=== PATIENT | female | born 1955 | race Caucasian/White ===

== ENCOUNTER 2016-08-28 09:48 | Outpatient (CLI) | payer OTHER | END 2016-08-28 09:49 | disposition home or self-care (01) | DX: E03.9 Hypothyroidism, unspecified (principal); R73.09 Other abnormal glucose; E55.9 Vitamin D deficiency, unspecified ==

== ENCOUNTER 2017-03-22 07:59 | Outpatient (CLI) | payer OTHER ==
[2017-03-22 14:45] LABS: THYROID STIMULATING HORMONE 2.62 uIU/mL (0.34-5.60)
[2017-03-22 14:50] LABS: CHOL/HDL RATIO 3.5 (<4.4); CHOLESTEROL 158 mg/dL; HDL CHOLESTEROL 45 mg/dL; LDL/HDL RATIO 2.2 (<4.4); TRIGLYCERIDES 77 mg/dL; VLDL CHOLESTEROL 15 mg/dL
[2017-03-22 14:52] LABS: FERRITIN 70.5 ng/mL (11.0-306.8); TOTAL T3 1.33 ng/mL (0.87-1.78)
[2017-03-22 15:11] LABS: HEMOGLOBIN A1C 0.59 g/dL
== END 2017-03-22 08:00 | disposition home or self-care (01) ==
LOC: LAB.F 07:59
PROVIDERS: ATTEND Family Medicine
DX: E03.9 Hypothyroidism, unspecified (principal); R73.09 Other abnormal glucose; E55.9 Vitamin D deficiency, unspecified; D64.9 Anemia, unspecified; R53.83 Other fatigue
CPT/HCPCS: 36415; 80061; 82306; 82728; 83036; 84439; 84443; 84480; 84481; 84482

== ENCOUNTER 2018-01-14 12:54 | Outpatient (CLI) | payer OTHER ==
--- NOTE | 2018-01-15 09:39 | DEXA Report ---
Procedure Date: 01/14/2018 Accession Number: [id number] / [id number] Procedure: DEX - Dexa Spine and/or Hip CPT Code: FULL RESULT: EXAM: Dexa Spine and/or Hip DATE: 01/14/2018 2:22 PM CLINICAL HISTORY: OSTEOPOROSIS SCREEN,NEW BERENICE TECHNIQUE: Dual energy x-ray absorptiometry (DXA) was performed on a [employer] System. Regions measured are the AP Spine, femoral neck, and if needed forearm. COMPARISON: None. In accordance with the International Society for Clinical Densitometry (ISCD) guidelines, data from previous exams may be reanalyzed using current recommendations and techniques. This is done to allow a more accurate basis for comparison with the current study. FINDINGS: The data for the lumbar spine is as follows: BMD (g/cm/cm) T-SCORE Z-SCORE REGION L1 1.100 -0.2 0.1 L2 1.104 -0.8 -0.4 L3 1.276 0.6 1.0 L4 1.233 0.3 0.7 TOTAL 1.185 0.0 0.4 NOTE: All evaluable vertebrae are used for classification The data for the hip is as follows: BMD (g/cm/cm) T-SCORE Z-SCORE REGION Neck 0.867 -1.2 -0.5 TOTAL 0.871 -1.1 -0.7 IMPRESSION: THE WHO CLASSIFICATION BASED ON THE INTERNATIONAL REFERENCE STANDARD IS OSTEOPENIA. THE FRACTURE RISK IS INCREASED. RECOMMENDATION: Patients with diagnosis of osteoporosis or osteopenia should have regular bone mineral density assessment. For those eligible for Medicare, routine testing is allowed once every 2 years. Testing frequency can be increased for patients who have rapidly progressing disease or for those who are receiving medical therapy to restore bone mass. COMMENT: World Health Organization (WHO) definitions for osteoporosis and osteopenia: NORMAL BMD: T-score at -1.0 or higher, fracture risk is low OSTEOPENIA BMD: T-score between -1.0 and -2.5, fracture risk is increased. OSTEOPOROSIS BMD: T-score at -2.5 or lower, fracture risk is high. National Osteoporosis Foundation recommends: 1. Obtain adequate dietary calcium (at least 1200 mg per day) and vitamin D (400-800 international units per day). 2. Participate, as appropriate, in regular weightbearing and muscle-strengthening exercise. 3. Avoid tobacco use and reduce alcohol and caffeine intake. 4. For more detailed information see the website at www.NOF.org.
== END 2018-01-14 12:55 | disposition home or self-care (01) ==
LOC: DI 12:54
PROVIDERS: ATTEND Family Medicine
DX: Z13.820 Encounter for screening for osteoporosis (principal); M85.88 Other specified disorders of bone density and structure, other site; R01.1 Cardiac murmur, unspecified
CPT/HCPCS: 77080; 93306

== ENCOUNTER 2019-11-23 03:30 | Emergency (ER) | payer BC, OTHER ==
--- NOTE | 2019-11-23 03:51 | ED Physician Documentation ---
History of Present Illness - Stated complaint Stated Complaint: BACK PX - Chief complaint Chief Complaint: Abd Pain - History obtained from History obtained from: Patient - History of Present Illness Timing: Enter time (03:00), Today Pain level max: 10 Pain level now: 10 Quality: throbbing Improved by: no ameliorating factors Worsened by: no exacerbating factors - Additonal information Additional information: c/o sudden onset right flank pain with nausea and vomiting, waking her from sleep at approximately 3 AM this morning. 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, Other HEENT: Tonsil/Adenoidectomy - Present Medications Home Medications: Ambulatory Orders Medication Instructions Recorded Confirmed Estrogens, Conjugated Cream 10 mcg VG BIDWM 05/17/16 05/17/16 [Premarin Cream] atenoloL [Atenolol] 25 mg PO DAILY 05/17/16 05/17/16 Ondansetron Odt [Zofran] 4 mg TL Q6H PRN #10 tablet 11/23/19 Tamsulosin HCl [Flomax] 0.4 mg PO DAILY #10 capsule 11/23/19 oxyCODONE [Roxicodone] 5 - 10 mg PO Q6H PRN #20 tablet 11/23/19 - Allergies Allergies/Adverse Reactions: Allergies Allergy/AdvReac Type Severity Reaction Status Date / Time No Known Drug Allergies Allergy Verified 11/23/19 03:45 PD ED PE NORMAL - Vitals Vital signs reviewed: Yes - General General: Alert and oriented X 3, Well developed/nourished, Other (obvious severe painful distress) - Cardiac Cardiac: RRR, No murmur - Respiratory Respiratory: No respiratory distress, Clear bilaterally - Abdomen Abdomen: Soft, Non tender - Back Back: No CVA TTP Results - Vitals Vitals: Vital Signs - 24 hr 11/23/19 11/23/19 03:30 06:55 Temperature 36.6 C 36.7 C Heart Rate 62 70 Respiratory 24 16 Rate Blood Pressure 202/79 H 170/90 H O2 Saturation 100 98 Oxygen O2 Source Room air - Labs Labs: Laboratory Tests 11/23/19 11/23/19 03:50 03:50 WBC 8.0 RBC 4.94 Hgb 14.2 Hct 43.0 MCV 87.0 MCH 28.7 MCHC 33.0 RDW 13.2 Plt Count 218 MPV 11.8 H Neut # (Auto) 4.0 Lymph # (Auto) 3.0 [place] # (Auto) 0.7 Eos # (Auto) 0.2 Baso # (Auto) 0.0 Absolute Nucleated RBC 0.00 Nucleated RBC % 0.0 Sodium 139 Potassium 3.5 Chloride 104 Carbon Dioxide 24 Anion Gap 11.0 BUN 21 H Creatinine 0.9 Estimated GFR (MDRD) 63 L Glucose 132 H Calcium 9.0 Total Bilirubin 0.7 AST 32 ALT 48 Alkaline Phosphatase 121 Total Protein 7.2 Albumin 4.0 Globulin 3.2 Albumin/Globulin Ratio 1.3 Lipase 36 - Rads (name of study) CT A/P Radiology: Prelim report reviewed, See rad report PD MEDICAL DECISION MAKING - ED course Complexity details: reviewed results, re-evaluated patient, considered differential, d/w patient ED course: symptoms were controlled with IV dilaudid, zofran, lidocaine, toradol. Also given IV NS. CT reveals right ureteral calculus 7mm in distal ureter. given PO flomax and discharged Departure - Departure Disposition: 01 Home, Self Care Clinical Impression: Renal colic Condition: Good Instructions: ED Stone Renal W Colic Prescriptions: Ondansetron Odt [Zofran] 4 mg TL Q6H PRN #10 tablet PRN Reason: Nausea / Vomiting oxyCODONE [Roxicodone] 5 - 10 mg PO Q6H PRN #20 tablet PRN Reason: Pain Tamsulosin HCl [Flomax] 0.4 mg PO DAILY #10 capsule Discharge Date/Time: 11/23/19 07:22
[2019-11-23] MEDS ORDERED: HYDROmorphone 2 MG/ML VIAL IVP STA (03:54)
[2019-11-23] MEDS ORDERED: KETOROLAC 30 MG/ML VIAL IVP STA (03:54)
[2019-11-23] MEDS ORDERED: SODIUM CHLORIDE 0.9% 1,000 ML IV STA (03:54)
[2019-11-23] MEDS ORDERED: ONDANSETRON 4 MG/2 ML VIAL IVP STA ×2 (03:54→06:00)
[2019-11-23] MEDS ORDERED: HYDROmorphone 2 MG/ML VIAL ONE (03:59)
[2019-11-23 04:03] LABS: BASOPHILS % (AUTO) 0.5 %; EOSINOPHILS # (AUTO) 0.2 10^3/uL (0.0-0.7); HGB - HEMOGLOBIN 14.2 g/dL (12.0-16.0); LYMPHOCYTES % (AUTO) 38.1 %; MEAN CORPUSCULAR HEMOGLOBIN 28.7 pg (27.0-31.0); MEAN PLATELET VOLUME 11.8 fL (7.9-10.8); MONOCYTES # (AUTO) 0.7 10^3/uL (0.0-1.0); MONOCYTES % (AUTO) 8.7 %; NEUTROPHILS % (AUTO) 50.4 %; PLT - PLATELET COUNT 218 10^3/uL (130-450); RED BLOOD COUNT 4.94 10^6/uL (4.20-5.40); RED CELL DISTRIBUTION WIDTH 13.2 % (12.0-15.0)
[2019-11-23] MEDS ORDERED: LIDOCAINE-MPF 2% 6 ML in SODIUM CHLORIDE 0.9% 50 ML IV STA (04:07)
[2019-11-23] MEDS ORDERED: HYDROmorphone 1 MG/ML CARPUJECT IVP STA (04:09)
[2019-11-23 04:17] LABS: ALBUMIN/GLOBULIN RATIO 1.3 (1.0-2.2); BILIRUBIN,TOTAL 0.7 mg/dL (0.2-1.0); CREATININE 0.9 mg/dL (0.4-1.0); TOTAL PROTEIN 7.2 g/dL (6.7-8.2)
--- NOTE | 2019-11-23 05:19 | CT Report ---
Reason: right flank pain Procedure Date: 11/23/2019 Accession Number: [id number] / [id number] Procedure: CT - Abdomen/Pelvis WO CPT Code: Final Report FULL RESULT: EXAM: CT ABDOMEN AND PELVIS EXAM DATE: 11/23/2019 05:03 AM. CLINICAL HISTORY: Right flank pain. COMPARISONS: CT ABD AND PELVIS W/O CONTRAST 10/19/2012 3:25 AM. TECHNIQUE: Routine helical CT imaging was performed through the abdomen and pelvis. IV contrast: None. Enteric contrast: No. Reconstructions: Coronal and sagittal. In accordance with CT protocol optimization, one or more of the following dose reduction techniques were utilized for this exam: automated exposure control, adjustment of mA and/or KV based on patient size, or use of iterative reconstructive technique. FINDINGS: Atelectasis is seen in both lung bases, left greater right. The heart is normal in size. There is no pericardial effusion. There is diffuse hypoattenuation of the right hepatic lobe consistent with geographic fatty infiltration. The gallbladder is normal. There is no biliary dilatation. The spleen, pancreas, and adrenal glands are within normal limits. A 7 mm calculus is seen in the distal right ureter. Mild right hydronephrosis is seen with mild perinephric and periureteral edema. No calculi are seen in the right kidney. No renal or ureteral calculi are seen in the left kidney. There is no left hydronephrosis or perinephric edema. The intestines are normal in caliber and position. There is no evidence of bowel obstruction or inflammation. No free intraperitoneal air or ascites is present. There is no lymphadenopathy. Atherosclerotic plaque calcifications are seen in the aorta and its branches. The abdominal aorta is normal in caliber. The bladder is normal. The uterus and ovaries are within normal limits. There is no free pelvic fluid. Degenerative disk disease is seen is L3-L4. There are no suspicious lytic or blastic lesions. IMPRESSION: 7 mm distal right ureteral calculus with mild hydronephrosis and perinephric edema. RADIA
[2019-11-23] MEDS ORDERED: ONDANSETRON ODT 4 MG Prepack 2 TL PRN (05:42)
[2019-11-23] MEDS ORDERED: TAMSULOSIN 0.4 MG CAPSULE PO STA (05:42)
[2019-11-23] MEDS ORDERED: oxyCODONE/ACET 5/325 Prepack 4 PO STA (05:42)
[2019-11-23 06:56] VITALS: BP 170/90
== END 2019-11-23 07:22 | disposition home or self-care (01) ==
LOC: ED 03:30
DX: N13.2 Hydronephrosis with renal and ureteral calculous obstruction (principal); I10 Essential (primary) hypertension
CPT/HCPCS: 36415; 74176; 80053; 83690; 85025; 96365; 96375; 99284; A9270; J1170; J7040

== ENCOUNTER 2019-11-25 22:52 | Emergency (ER) | payer BC ==
--- NOTE | 2019-11-25 23:04 | ED Physician Documentation ---
PD HPI ABD PAIN - Stated complaint Stated Complaint: BACK PX/VOMITING - Chief complaint Chief Complaint: Abd Pain - History obtained from History obtained from: Patient - History of Present Illness Timing - onset: Enter time (22:00), Today Timing - details: Abrupt onset Quality: Pain Location: Other (right flank) Radiation: Other (RLQ and right pelvis) Improved by: Other (no apparent ameliorating factors, but significantly improved by the time of this H+P) Worsened by: Other (no exacerbating factors) Associated symptoms: Nausea, Vomiting. No: Fever Similar symptoms before: Diagnosis (renal colic) Recently seen: Emergency Dept - Additional information Additional information: T+R from this ED 2 days ago for renal colic, right ureteral 7mm calculus. She says she had some mild pain the same day as discharge but otherwise had no pain until 10 PM tonight when she had sudden onset right flank pain that is radiating to right pelvis (which is lower than previous), associated with nausea and vomiting and thus was unable to tolerate any of the prescribed pain medication. The pain has significantly improved by the time of this evaluation Review of Systems Constitutional: denies: Fever, Chills, Sweats Cardiac: reports: Reviewed and negative Respiratory: reports: Reviewed and negative GI: reports: Abdominal Pain (right flank pain), Nausea, Vomiting. 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 HEENT: Tonsil/Adenoidectomy - Present Medications Home Medications: Ambulatory Orders Medication Instructions Recorded Confirmed Estrogens, Conjugated Cream 10 mcg VG BIDWM 05/17/16 11/25/19 [Premarin Cream] atenoloL [Atenolol] 25 mg PO DAILY 05/17/16 11/25/19 Ondansetron Odt [Zofran] 4 mg TL Q6H PRN #10 tablet 11/23/19 11/25/19 Tamsulosin HCl [Flomax] 0.4 mg PO DAILY #10 capsule 11/23/19 11/25/19 oxyCODONE [Roxicodone] 5 - 10 mg PO Q6H PRN #20 tablet 11/23/19 11/25/19 - Allergies Allergies/Adverse Reactions: Allergies Allergy/AdvReac Type Severity Reaction Status Date / Time No Known Drug Allergies Allergy Verified 11/25/19 22:59 PD ED PE NORMAL - Vitals Vital signs reviewed: Yes - General General: Alert and oriented X 3, No acute distress, Well developed/nourished - HEENT HEENT: Moist mucous membranes - Cardiac Cardiac: RRR, No murmur - Respiratory Respiratory: No respiratory distress, Clear bilaterally - Abdomen Abdomen: Soft, Non tender, Non distended - Back Back: No CVA TTP Results - Vitals Vitals: Vital Signs - 24 hr 11/25/19 11/25/19 11/26/19 22:54 23:46 00:03 Temperature 36.6 C Heart Rate 70 74 62 Respiratory 14 16 16 Rate Blood Pressure 200/91 H 151/75 H 131/69 H O2 Saturation 96 95 96 11/26/19 01:14 Temperature 36.8 C Heart Rate 68 Respiratory 16 Rate Blood Pressure 131/57 H O2 Saturation 97 Oxygen O2 Source Room air - Labs Labs: Laboratory Tests 11/25/19 11/25/19 11/25/19 23:32 23:32 23:32 WBC 7.9 RBC 5.11 Hgb 14.5 Hct 44.6 MCV 87.3 MCH 28.4 MCHC 32.5 RDW 13.0 Plt Count 225 MPV 11.7 H Neut # (Auto) 4.9 Lymph # (Auto) 2.1 [place] # (Auto) 0.8 Eos # (Auto) 0.1 Baso # (Auto) 0.0 Absolute Nucleated RBC 0.00 Nucleated RBC % 0.0 Sodium 138 Potassium 3.6 Chloride 100 L Carbon Dioxide 29 Anion Gap 9.0 BUN 17 Creatinine 0.8 Estimated GFR (MDRD) 73 L Glucose 120 H Calcium 9.3 Total Bilirubin 1.0 AST 38 ALT 46 Alkaline Phosphatase 114 Total Protein 7.6 Albumin 4.3 Globulin 3.3 Albumin/Globulin Ratio 1.3 Lipase 37 Urine Color YELLOW Urine Clarity CLEAR Urine pH 7.0 Ur Specific [place] 1.015 Urine Protein 100 H Urine Glucose (UA) NEGATIVE Urine Ketones NEGATIVE Urine Occult Blood LARGE H Urine Nitrite NEGATIVE Urine Bilirubin NEGATIVE Urine Urobilinogen 0.2 (NORMAL) Ur Leukocyte Esterase NEGATIVE Urine RBC TNTC H Urine WBC 0-3 Ur Squamous Epith Cells FEW Squamous Urine Bacteria Few Ur Microscopic Review INDICATED Urine Culture Comments NOT INDICATED - Rads (name of study) abd. xray (KUB) Radiology: Prelim report reviewed, See rad report PD MEDICAL DECISION MAKING - ED course Complexity details: reviewed old records, reviewed results, re-evaluated patient, considered differential, d/w patient ED course: Patient had resolution of her symptoms with IV toradol. Also given IV NS. She did not have any nausea/vomiting during ED stay and thus not given antinauseant. I offered to contact a urologist, with the understanding that the result of such a conversation would be more likely regarding outpatient follow-up (as she is pain-free with toradol) rather than transfer for inpatient management. Patient says she prefers to try again in obtaining outpatient urology follow-up on her own (she has made calls but has not heard back from the urology offices she has called). Departure - Departure Disposition: 01 Home, Self Care Clinical Impression: Renal colic Condition: Good Instructions: ED Stone Renal W Colic Comments: Follow up with urology; contact your insurance carrier or your primary care provider to discuss arranging this Discharge Date/Time: 11/26/19 01:16
[2019-11-25] MEDS ORDERED: KETOROLAC 30 MG/ML VIAL IVP STA (23:27)
[2019-11-25] MEDS ORDERED: SODIUM CHLORIDE 0.9% 1,000 ML IV STA (23:28)
[2019-11-25 23:37] LABS: BASOPHILS % (AUTO) 0.4 %; EOSINOPHILS # (AUTO) 0.1 10^3/uL (0.0-0.7); EOSINOPHILS % (AUTO) 1.7 %; HGB - HEMOGLOBIN 14.5 g/dL (12.0-16.0); LYMPHOCYTES # (AUTO) 2.1 10^3/uL (1.5-3.5); MEAN CORPUSCULAR HEMOGLOBIN 28.4 pg (27.0-31.0); MEAN CORPUSCULAR HGB CONC 32.5 g/dL (32.0-36.0); MEAN CORPUSCULAR VOLUME 87.3 fL (81.0-99.0); MEAN PLATELET VOLUME 11.7 fL (7.9-10.8); MONOCYTES # (AUTO) 0.8 10^3/uL (0.0-1.0); MONOCYTES % (AUTO) 9.5 %; NEUTROPHILS # (AUTO) 4.9 10^3/uL (1.5-6.6); PLT - PLATELET COUNT 225 10^3/uL (130-450); RED BLOOD COUNT 5.11 10^6/uL (4.20-5.40); WHITE BLOOD COUNT 7.9 x10^3/uL (4.8-10.8)
[2019-11-25 23:49] LABS: ALBUMIN 4.3 g/dL (3.2-5.5); ALBUMIN/GLOBULIN RATIO 1.3 (1.0-2.2); BILIRUBIN,URINE NEGATIVE (NEGATIVE); CALCIUM 9.3 mg/dL (8.5-10.3); CREATININE 0.8 mg/dL (0.4-1.0); GLUCOSE, URINE (UA) NEGATIVE (NEGATIVE); KETONES,URINE (UA) NEGATIVE (NEGATIVE); LEUKOCYTE ESTERASE, URINE NEGATIVE (NEGATIVE); NITRITE,URINE NEGATIVE (NEGATIVE); OCCULT BLOOD,URINE LARGE (NEGATIVE); PROTEIN,URINE 100 mg/dL (NEGATIVE); TOTAL PROTEIN 7.6 g/dL (6.7-8.2); UROBILINOGEN,URINE 0.2 (NORMAL) E.U./dL (NORMAL)
[2019-11-25 23:50] LABS: CLARITY,URINE CLEAR (CLEAR)
[2019-11-25 23:54] LABS: BACTERIA,URINE Few /HPF (None Seen); RBC,URINE TNTC /HPF (0-5); SQUAMOUS EPITHELIAL CELL,UR FEW Squamous (<= Few)
--- NOTE | 2019-11-26 00:23 | XRAY Report ---
Reason: right flank pain Procedure Date: 11/26/2019 Accession Number: [id number] / [id number] Procedure: XR - Abdomen 1 View X-Ray CPT Code: 63432 Final Report FULL RESULT: EXAM: ABDOMEN RADIOGRAPHY EXAM DATE: 11/26/2019 12:03 AM. CLINICAL HISTORY: Right flank pain. COMPARISON: ABDOMEN/PELVIS W/O 11/23/2019 4:50 AM. TECHNIQUE: 1 view. FINDINGS: Bowel Gas Pattern: Within normal limits. No dilated loops. Other: Several small calcifications in the right pelvis could be a combination of phleboliths and the known small recent distal right ureteral stone. IMPRESSION: Several small calcifications in the right pelvis could be a combination of phleboliths and the known small recent distal right ureteral stone. RADIA
[2019-11-26 01:15] VITALS: BP 131/57
== END 2019-11-26 01:16 | disposition home or self-care (01) ==
LOC: ED 22:52
DX: N20.1 Calculus of ureter (principal); I10 Essential (primary) hypertension
CPT/HCPCS: 36415; 74018; 80053; 81001; 81003; 83690; 85025; 87086; 96361; 96374; 99284

== ENCOUNTER 2019-12-02 15:26 | Emergency (ER) | payer BC ==
[2019-12-02 15:44] VITALS: BP 206/89
[2019-12-02 16:38] LABS: BILIRUBIN,URINE NEGATIVE (NEGATIVE); GLUCOSE, URINE (UA) NEGATIVE (NEGATIVE); KETONES,URINE (UA) 15 mg/dL (NEGATIVE); LEUKOCYTE ESTERASE, URINE TRACE (NEGATIVE); NITRITE,URINE NEGATIVE (NEGATIVE); OCCULT BLOOD,URINE LARGE (NEGATIVE); PH,URINE 6.5 PH (5.0-7.5); PROTEIN,URINE 30 mg/dL (NEGATIVE); UROBILINOGEN,URINE 0.2 (NORMAL) E.U./dL (NORMAL)
--- NOTE | 2019-12-02 16:38 | ED Physician Documentation ---
PD HPI ABD PAIN - Stated complaint Stated Complaint: ABD PAIN - Chief complaint Chief Complaint: Abd Pain - History obtained from History obtained from: Patient - History of Present Illness Timing - onset: How many weeks ago (2) Timing - duration: Weeks (2) Timing - details: Abrupt onset, Still present, Waxing and waning (had initial ureterolithiasis pain about 2 weeks ago with ED eval showing 7 mm distal ureteral stone. Has had pain exacerbations at times. Seen again in ER couple days later and was seen by Urologist Dr. Vides in [place] few days ago. Is on Flomax. No anti-inflammatories. Has Zofran and Percocet. Gets nauseated and vomiting when pain severe. Had pain flare this afternoon again. It is improving now just as getting into room in ER.) Quality: Aching, Sharp, Pain Location: RLQ Radiation: Right flank Improved by: No: Eating, Laying still, Vomiting Worsened by: No: Eating, Moving, Breathing, Position Associated symptoms: Nausea, Vomiting, Hematuria (at times). No: Fever, Diarrhe a, Constipation, Dysuria, Vaginal dc Review of Systems Constitutional: denies: Fever, Chills, Myalgias Nose: denies: Rhinorrhea / runny nose, Congestion Throat: denies: Sore throat Cardiac: denies: Chest pain / pressure Respiratory: denies: Cough GI: reports: Abdominal Pain, Nausea, Vomiting. 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 HEENT: Tonsil/Adenoidectomy - Present Medications Home Medications: Ambulatory Orders Medication Instructions Recorded Confirmed Estrogens, Conjugated Cream 10 mcg VG BIDWM 05/17/16 11/25/19 [Premarin Cream] atenoloL [Atenolol] 25 mg PO DAILY 05/17/16 11/25/19 Ondansetron Odt [Zofran] 4 mg TL Q6H PRN #10 tablet 11/23/19 11/25/19 Tamsulosin HCl [Flomax] 0.4 mg PO DAILY #10 capsule 11/23/19 11/25/19 oxyCODONE [Roxicodone] 5 - 10 mg PO Q6H PRN #20 tablet 11/23/19 11/25/19 Cephalexin [Keflex] 500 mg PO Q6H #20 capsule 12/02/19 Naproxen 375 mg PO BID #20 tablet 12/02/19 Phenazopyridine HCl [Pyridium] 100 mg PO TID PRN #15 tablet 12/02/19 Promethazine [Phenergan] 25 mg PO Q6H PRN #10 tab 12/02/19 dexAMETHasone [Decadron] 4 mg PO DAILY #5 tablet 12/02/19 - Allergies Allergies/Adverse Reactions: Allergies Allergy/AdvReac Type Severity Reaction Status Date / Time No Known Drug Allergies Allergy Verified 12/02/19 15:42 - Social History Does the pt smoke?: No Smoking Status: Never smoker - POLST Patient has POLST: No PD ED PE NORMAL - Vitals Vital signs reviewed: Yes - General General: Alert and oriented X 3, No acute distress, Well developed/nourished - Neck Neck: Supple, no meningeal sign, No adenopathy - Cardiac Cardiac: RRR, No murmur - Respiratory Respiratory: Clear bilaterally - Abdomen Abdomen: Normal bowel sounds, Soft, Non tender, Non distended, No organomegaly - Female Female : Deferred - Rectal Rectal: Deferred - Back Back: Other (some CVA tender right flank. No rash nor sores. ) - Derm Derm: Normal color, Warm and dry Results - Vitals Vitals: Vital Signs - 24 hr 12/02/19 15:42 Temperature 36.7 C Heart Rate 95 Respiratory 18 Rate Blood Pressure 206/89 H O2 Saturation 98 Oxygen O2 Source Room air - Labs Labs: Laboratory Tests 12/02/19 16:32 Urine Color DARK YELLOW Urine Clarity CLOUDY Urine pH 6.5 Ur Specific [place] 1.020 Urine Protein 30 H Urine Glucose (UA) NEGATIVE Urine Ketones 15 H Urine Occult Blood LARGE H Urine Nitrite NEGATIVE Urine Bilirubin NEGATIVE Urine Urobilinogen 0.2 (NORMAL) Ur Leukocyte Esterase TRACE H Urine RBC TNTC H Urine WBC 6-10 H Ur Squamous Epith Cells FEW Squamous Urine Bacteria Few Ur Microscopic Review INDICATED Urine Culture Comments INDICATED PD MEDICAL DECISION MAKING - ED course Complexity details: reviewed old records, considered differential (known 7 mm distal ureteral stone that has not passed yet. She is comfortable enough now here. Can augment her med regimen.), d/w patient Departure - Departure Disposition: 01 Home, Self Care Clinical Impression: Ureteral calculus, right Abdominal pain Qualifiers: Abdominal location: right lower quadrant Qualified Code(s): R10.31 - Right lower quadrant pain Condition: Stable Record reviewed to determine appropriate education?: Yes Instructions: ED Stone Renal W Colic Follow-Up: VICKI VIDES [Physician No Access] - Prescriptions: Cephalexin [Keflex] 500 mg PO Q6H #20 capsule dexAMETHasone [Decadron] 4 mg PO DAILY #5 tablet Naproxen 375 mg PO BID #20 tablet Phenazopyridine HCl [Pyridium] 100 mg PO TID PRN #15 tablet PRN Reason: Abdominal Pain Promethazine [Phenergan] 25 mg PO Q6H PRN #10 tab PRN Reason: Nausea / Vomiting Comments: Your urine does have suggestion of infection so add cephalexin antibiotic next 5 days or so. Stay well-hydrated. Consider adding a regular anti-inflammatory of both Decadron steroid daily for the next 5 days or so and naproxen anti-inflammatory 2-3 times a day for the next several days. You could also try phenazopyridine to help with some ureteral and bladder discomfort. Able to do urine a little orange-colored. If needed you could add promethazine antinausea medicine twice daily regularly for the next few days and to that add the ondansetron when needed. Use Tylenol 4 times a day or the oxycodone as needed for the pains. Follow-up with urology if not improved over the next several days or so or as pl anned for follow-up with Dr. vides. Discharge Date/Time: 12/02/19 17:49
[2019-12-02 16:41] LABS: CLARITY,URINE CLOUDY (CLEAR)
[2019-12-02 16:42] LABS: BACTERIA,URINE Few /HPF (None Seen); RBC,URINE TNTC /HPF (0-5); SQUAMOUS EPITHELIAL CELL,UR FEW Squamous (<= Few)
[2019-12-02] MEDS ORDERED: ONDANSETRON ODT 4 MG TABLET TL STA (17:25)
[2019-12-02] MEDS ORDERED: CHERRY SYRUP 10 ML UDC PO ONE (17:25)
[2019-12-02] MEDS ORDERED: NAPROXEN 250 MG TABLET PO STA (17:25)
[2019-12-02] MEDS ORDERED: DEXAMETHASONE 10 MG/ML VIAL PO STA (17:25)
[2019-12-02] MEDS ORDERED: cephALEXin 250 MG CAPSULE PO STA (17:25)
[2019-12-02] MEDS ORDERED: PHENAZOPYRIDINE 100 MG TABLET PO STA (17:26)
== END 2019-12-02 17:49 | disposition home or self-care (01) ==
LOC: ED 15:26
DX: N20.1 Calculus of ureter (principal); I10 Essential (primary) hypertension
CPT/HCPCS: 81001; 87086; 99284; A9270; Q0162; 80053; 81003; 83690; 85025

== ENCOUNTER 2022-08-06 07:56 | Day surgery (SDC) | payer OTHER ==
[2022-08-06] MEDS ORDERED: LACTATED RINGERS 1,000 ML IV ONE ×2 (08:12→09:55)
[2022-08-06] MEDS ORDERED: PROPOFOL 500 MG/50 ML 500 MG/50 ML VIAL ONE (09:17)
[2022-08-06] MEDS ORDERED: PROPOFOL 200 MG/20 ML VIAL IVP ONE (09:34)
--- NOTE | 2022-08-06 10:02 | ANESTHESIA POST OP EVALUATION ---
Anesthesia Post Eval - Post Anesthesia Eval Vitals: Last Vital Signs Temp 36.4 C L 08/06/22 09:55 Pulse 80 08/06/22 09:55 Resp 16 08/06/22 09:55 BP 142/71 H 08/06/22 09:55 Pulse Ox 94 08/06/22 09:55 O2 Flow Rate 0 08/06/22 08:14 CV Function Including HR & BP: Stable Pain Control: Satisfactory Nausea & Vomiting: Negative Mental Status: Baseline Respiratory Status: Airway Patent Hydration Status: Satisfactory Anesthesia Complications: None
--- NOTE | 2022-08-06 10:02 | ANESTHESIA ---
Pre-Anesthesia VS, & Labs - Diagnosis history of colon polyps - Procedure colonoscopy Vital Signs: Temp Pulse Resp BP Pulse Ox O2 Flow Rate 35.9 C L 69 16 170/101 H 98 0 08/06/22 08:14 08/06/22 08:14 08/06/22 08:14 08/06/22 08:14 08/06/22 08:14 08/06/22 08:14 Height: 5 ft 6 in Weight (kg): 87 kg Body Mass Index: 30.9 BMI Classification: Obese - NPO >8 hours - Is Patient ?: No Home Medications and Allergies Estrogens, Conjugated Cream [Premarin Cream] 10 mcg VG BIDWM 05/17/16 Allergies/Adverse Reactions: Allergies Allergy/AdvReac Type Severity Reaction Status Date / Time adhesive tape AdvReac Rash Verified 08/06/22 08:25 Anes History & Medical History - Anesthetic History Anesthesia Complications: reports: No previous complications - Medical History Cardiovascular: reports: Hypertension Pulmonary: reports: None Gastrointestinal: reports: Colon polyps, Hemorrhoids Urinary: reports: Kidney stones Neuro: reports: None Musculoskeletal: reports: Chronic back pain, Other Endocrine/Autoimmune: reports: HyPERthyroidism (last tsh normal) Blood Disorders: reports: None Skin: reports: None Smoking Status: Never smoker Psychosocial: reports: No issues indicated History of Cancer?: No - Surgical History General: reports: Colonoscopy, EGD Eyes Ears Nose Throat (EENT): reports: Tonsil/Adenoidectomy Gynecologic: reports: section, Other Orthopedic: reports: Other Exam General: Alert, Oriented x3, Cooperative, No acute distress Dental: WNL Mouth Openin Fingerbreadth Neck Mobility: Normal Mallampati classification: III Thyromental Distance: 4-6 cm Mental/Cognitive Status: Alert/Oriented X3, Normal for patient Plan Anesthesia Type: General, Total IV Consent for Procedure(s) Verified and Reviewed: Yes Code Status: Attempt Resuscitation ASA classification: 2-Mild systemic disease Is this case an emergency?: No
[2022-08-06 10:34] VITALS: BP 151/88
== END 2022-08-06 07:57 | disposition home or self-care (01) ==
LOC: SDS 07:56
PROVIDERS: ATTEND Surgery
PROC: 0DBL8ZZ Excision of Transverse Colon, Via Natural or Artificial Opening Endoscopic (ICD-10-PCS; 2022-08-06)
PROC: 0DBH8ZZ Excision of Cecum, Via Natural or Artificial Opening Endoscopic (ICD-10-PCS; 2022-08-06)
PROC: 0DBK8ZZ Excision of Ascending Colon, Via Natural or Artificial Opening Endoscopic (ICD-10-PCS; principal; 2022-08-06 09:00)
DX: Z12.11 Encounter for screening for malignant neoplasm of colon (principal); D12.3 Benign neoplasm of transverse colon; D12.0 Benign neoplasm of cecum; D12.2 Benign neoplasm of ascending colon; E66.9 Obesity, unspecified; Z68.30 Body mass index [BMI] 30.0-30.9, adult; I10 Essential (primary) hypertension
CPT/HCPCS: 45385; J7120

== ENCOUNTER 2023-05-20 07:00 | Outpatient (CLI) | payer OTHER ==
[2023-05-20 15:21] LABS: BILIRUBIN,URINE NEGATIVE (NEGATIVE); GLUCOSE, URINE (UA) NEGATIVE (NEGATIVE); KETONES,URINE (UA) NEGATIVE (NEGATIVE); LEUKOCYTE ESTERASE, URINE TRACE (NEGATIVE); NITRITE,URINE NEGATIVE (NEGATIVE); OCCULT BLOOD,URINE NEGATIVE (NEGATIVE); PROTEIN,URINE NEGATIVE (NEGATIVE); UROBILINOGEN,URINE 0.2 (NORMAL) E.U./dL (NORMAL)
[2023-05-20 15:27] LABS: CLARITY,URINE HAZY (CLEAR)
[2023-05-20 15:33] LABS: BACTERIA,URINE Moderate /HPF (None Seen); MUCUS,URINE Moderate Strands; RBC,URINE 0-5 /HPF (0-5); SQUAMOUS EPITHELIAL CELL,UR MANY Squamous (<= Few); WBC,URINE 0-3 /HPF (0-5)
== END 2023-05-20 23:59 | disposition home or self-care (01) ==
LOC: LAB.S 07:00
PROVIDERS: ATTEND Physician Assistant
DX: R10.9 Unspecified abdominal pain (principal)
CPT/HCPCS: 81001; 87086; 87181